=== PATIENT | male | born 2000 | race African-American/Black ===

== ENCOUNTER 2022-04-29 16:45 | Emergency (ER) | payer BC ==
[~2022-04-29] VITALS: Ht 167.6 cm; Wt 77.0 kg
[2022-04-29 16:59] VITALS: BP 134/82
== END 2022-04-29 18:58 | disposition left against medical advice (07) ==
LOC: ER 16:45
DX: Z53.21 Procedure and treatment not carried out due to patient leaving prior to being seen by health care provider (principal)